=== PATIENT | female | born 1940 | race Caucasian/White ===

== ENCOUNTER → 2020-07-16 | Day surgery (SDC) | payer MEDICARE, BC ==
[~2020-07-16] MED LIST: AMLODIPINE BESY10 MG PO; ATENOLOL50 MG PO; ELIQUIS5 MG PO; FUROSEMIDE40 MG PO; LEVOTHYROXINE50 MCG PO; LIDOCAINE HCL 2% LOCAL INJ 5 ML SDV VIAL INJ ONE; OXYMETAZOLINE HCL 0.05% NAS 1 SPRAY BTL ONE; PROPOFOL IV EMULSION 10 MG/ML 20 ML VIAL ONE; RESTORIL15 MG PO
[2020-07-16 08:50] VITALS: BP 130/60
== END | disposition home or self-care (01) ==
LOC: OR 05:39
PROVIDERS: ATTEND Otolaryngology Otolaryngology/Facial Plastic Surgery
DX: H65.22 Chronic serous otitis media, left ear (principal); H90.6 Mixed conductive and sensorineural hearing loss, bilateral; I10 Essential (primary) hypertension; I48.91 Unspecified atrial fibrillation; E03.9 Hypothyroidism, unspecified; I44.0 Atrioventricular block, first degree; Z88.0 Allergy status to penicillin; Z88.2 Allergy status to sulfonamides; Z79.02 Long term (current) use of antithrombotics/antiplatelets
CPT/HCPCS: 31237; 69399; 69436; 71046; 88305; 93005; J2001; J2704